=== PATIENT | male | born 2000 | race Caucasian/White ===

== ENCOUNTER 2019-02-17 20:06 | Emergency (ER) | payer OTHER ==
[2019-02-17 20:18] VITALS: BP 132/88
--- NOTE | 2019-02-17 20:49 | UC ---
Laceration HPI - HPI Summary HPI Summary: 18 y/o male presents to the urgent care c/o laceration on his left index finger w/ a glass before leaving the [facility] [place] tonight around 1930pm. Pt reports he cut his finger w/ a big piece if the glass. Pt states it is still bleeding. He states pain is 6/10 and he can move his finger w/o any difficulty. Pt denies numbness or tingling sensation over his left index finger or hand. Pt is UTD w/ Tetanus vaccine. Pt denies fever, SOB, chest pain, abdominal pain, N/V/D. - History Of Current Complaint Chief Complaint: UCLaceration Stated Complaint: FINGER LAC Time Seen by Provider: 02/17/19 20:48 Hx Obtained From: Patient Laceration Location: Finger - left index finger laceration w/ a glass around 1hrs ago Mechanism Of Injury: Sharp Trauma Onset/Duration: Sudden Onset, Still Present Severity: Moderate Pain Intensity: 6 Pain Scale Used: 0-10 Numeric Aggravating Factors: Movement, Other: - touch Related History: Dominant Hand Right - Allergies/Home Medications Allergies/Adverse Reactions: Allergies Allergy/AdvReac Type Severity Reaction Status Date / Time No Known Allergies Allergy Verified 02/17/19 20:20 PMH/Surg Hx/FS Hx/Imm Hx Previously Healthy: Yes - Pt denies PMHX - Surgical History Surgical History: None - Family History Known Family History: Positive: None - Pt deneis FMHX - Social History Occupation: Student Lives: With Family Alcohol Use: Occasionally Substance Use Type: None Smoking Status (MU): Never Smoked Tobacco - Immunization History Most Recent Tetanus Shot: thinks ~ 2 years ago Vaccination Up to Date: Yes Review of Systems All Other Systems Reviewed And Are Negative: Yes Constitutional: Positive: Negative Skin: Positive: Other - laceration of the left index finger w/ a glass Eyes: Positive: Negative ENT: Positive: Negative Respiratory: Positive: Negative Cardiovascular: Positive: Negative Gastrointestinal: Positive: Negative Genitourinary: Positive: Negative Motor: Positive: Negative Neurovascular: Positive: Negative Musculoskeletal: Positive: Other: - left index finger pain s/p laceration Neurological: Positive: Negative Psychological: Positive: Negative Is Patient Immunocompromised?: No Physical Exam - Summary Physical Exam Summary: Vital Signs Reviewed: Yes General: well developed, well nourished male sitting in the examining table w/o any apparent distress Eye Exam: Normal Eyes: Positive: Conjunctiva Clear - PERRLA, EOMI, fundi grossly normal ENT: Positive: Normal ENT inspection, Hearing grossly normal, Pharynx normal, TMs normal Neck: Positive: Supple, Nontender, No Lymphadenopathy Respiratory: Positive: Chest non-tender, Lungs clear, Normal breath sounds, No respiratory distress Cardiovascular: Positive: RRR, No Murmur, Pulses Normal, Brisk Capillary Refill Abdomen Description: Positive: Nontender, No Organomegaly, Soft. Negative: CVA Tenderness (R), CVA Tenderness (L) Bowel Sounds: Positive: Present Musculoskeletal: Positive: Strength Intact, ROM Intact, No Edema Neurological: Positive: Alert, Muscle Tone Normal Psychological Exam: Normal Skin: Positive:Lateral side of left index finger with a linear superficial laceration about 2.4cm in size, bleeding, no foreign body observed. tenderness to palpation, No ecchymosis around finger. FROM of LF finger, sensation intact , capillary refill brisk, and pulses WNL. Triage Information Reviewed: Yes Vital Signs: Initial Vital Signs Temp 98.4 F 02/17/19 20:14 Pulse 75 02/17/19 20:14 Resp 16 02/17/19 20:14 BP 132/88 02/17/19 20:14 Pulse Ox 99 02/17/19 20:14 Laceration Repair - Laceration Repair 1 Description: Linear - superficial laceration medial aspect of left index finger Laceration Size After Repair: Length (cm) - 2.4cm Modified For Repair: No Type Injection: Digital Anesthesia Used: 1.0% Lido - 2ml Cleansing Completed Via Routine Prep: Yes Irrigation With Pressure Irrigation Device: Yes Closure Material: Sutures - 7 sutures Closure Method: Single Layer Suture Of: Skin, SQ Suture Type: Nylon Laceration Course/Dx - Course/Dx Course Of Treatment: 18 y/o male presents to the urgent care c/o laceration on his left index finger w/ a glass before [facility] around 1930pm. Pt reports he cut his finger w/ a big piece if the glass. Pt states it is still bleeding. He states pain is 6/10 and he can move his finger w/o any difficulty. Pt denies numbness or tingling sensation over his left index finger or hand. Pt is UTD w/ Tetanus vaccine. Pt denies fever, SOB, chest pain, abdominal pain, N/V/D. Hx obtained. LACERATION PROCEDURE NOTE: . Copious irrigation was done with saline by the nurse and the wound explored. There was no FB or deep structure injury noted. FROM of left hadn and fingers. procedure was explained and consent obtained, Timeout performed. The wound was anesthetized by digital block with 2 mL of 1% lido with good anesthesia. Sterile drape and prep were done. There were 7 sutures with 5.0 nylon type of suture. The length of the wound after closure was 2.4cm. No debridement done. Pt tolerated the procedure well without adverse effects. Neurovascular intact and FROM of the left index. Pt advised to f/u suture removal in 10-12 days and if any signs of infection develop to immediately return to the urgent care of PCP for further management and treatment. Pt understood and agreed and left the clinic ambulating A&Ox3. - Differential Dx - Laceration/Wound Differental Diagnoses: Abrasion, Avulsion, Laceration, Puncture Wound - Diagnosis Provider Diagnosis: Laceration of left index finger Discharge - Sign-Out/Discharge Documenting (check all that apply): Patient Departure - d/C home All imaging exams completed and their final reports reviewed: No Studies - Discharge Plan Condition: Stable Disposition: HOME Prescriptions: Bacitracin OINTMENT* 1 applic TOPICAL BID #1 tube Patient Education Materials: Care For Your Stitches (ED), Laceration (ED) Referrals: No Primary Care Phys,NOPCP [Primary Care Provider] - [facility] [Outside] Additional Instructions: 1-Please apply topical antibiotic over the wound. Keep wound clean and dry 2- F/u suture removal in 10-12 days days w/ your PCP or here at the urgent care. 3-Take Ibuprofen or Tylenol PO q6-8hrs prn for pain or swelling. 4- If you develop fever or redness around your finger please return to the Urgent care or w/ your PCP for further management. . - Billing Disposition and Condition Condition: STABLE Disposition: Home
[2019-02-17] MEDS ORDERED: Ibuprofen TAB* 600 MG PO ONE (21:25)
[2019-02-17] MEDS ORDERED: Lidocaine 1%* 5 ML VIAL INJ ONE (21:29)
== END 2019-02-17 22:20 | disposition home or self-care (01) ==
LOC: UCEAST 20:06
DX: S61.211A Laceration without foreign body of left index finger without damage to nail, initial encounter (principal); W25.XXXA Contact with sharp glass, initial encounter; Y92.89 Other specified places as the place of occurrence of the external cause
CPT/HCPCS: 12001; 99212; A9270-GY; G0463